=== PATIENT | male | born 1950 | race Caucasian/White ===

== ENCOUNTER 2021-08-28 07:18 | Emergency (ER) | payer OTHER ==
[~2021-08-28] VITALS: Ht 172.7 cm; Wt 68.9 kg
[~2021-08-28 07:18] MED LIST: GUAIFEN-CODEINE10 ML PO; ZITHROMAX250 MG PO
[2021-08-28] MEDS ORDERED: FAMCICLOVIR500 MG PO (07:43)
== END 2021-08-28 08:05 | disposition home or self-care (01) ==
LOC: ED 07:18
DX: B02.9 Zoster without complications (principal); F17.200 Nicotine dependence, unspecified, uncomplicated
CPT/HCPCS: 99282

== ENCOUNTER 2021-10-09 09:02 | Emergency (ER) | payer OTHER ==
[~2021-10-09] VITALS: Ht 172.7 cm; Wt 68.5 kg
[~2021-10-09 09:02] MED LIST changes: +FAMCICLOVIR500 MG PO
--- OUTSIDE RECORDS SUMMARY | 2021-10-09 09:48 | XMS ---
PreManage Notification: BRENDAN JJ Security Nurse Practitioner Home Assessments Events No recent Security Events currently on file CRITERIA MET - [facility] CARE PROVIDERS There are no care providers on record at this time. Jake has no Care Guidelines for this patient. Sarina VISIT COUNT (12 MO.) 2 [facility] TOTAL 2 NOTE: Visits indicate total known visits. ED/UCC VISIT TRACKING (12 MO.) 10/09/2021 09:03 [facility] [place] TYPE: Emergency COMPLAINT: - NEEDING PRESCRIPTION REFILL 08/28/2021 07:20 [facility] TYPE: Emergency COMPLAINT: - RASH ON RT RIB CAGE DIAGNOSES: - Nicotine dependence, unspecified, uncomplicated - Rash and other nonspecific skin eruption - Zoster without complications INPATIENT VISIT TRACKING (12 MO.) No inpatient visits to display in this time frame [id number]
[2021-10-09] MEDS ORDERED: VALTREX1000 MG PO (10:57)
[2021-10-09] MEDS ORDERED: PREDNISONE20 MG PO (10:57)
== END 2021-10-09 11:09 | disposition home or self-care (01) ==
LOC: ED 09:02
DX: B02.9 Zoster without complications (principal); L25.9 Unspecified contact dermatitis, unspecified cause; I10 Essential (primary) hypertension; F17.200 Nicotine dependence, unspecified, uncomplicated; Z79.899 Other long term (current) drug therapy
CPT/HCPCS: 36415; 80053; 85025; 99283

== ENCOUNTER 2021-11-13 22:06 | Emergency (ER) | payer OTHER ==
[~2021-11-13] VITALS: Ht 172.7 cm; Wt 70.0 kg
[~2021-11-13 22:06] MED LIST changes: +PREDNISONE20 MG PO; +VALTREX1000 MG PO
[2021-11-13] MEDS ORDERED: GABAPENTIN100 MG PO (22:23)
[2021-11-13] MEDS ORDERED: CYMBALTA30 MG PO (22:23)
[2021-11-13] MEDS ORDERED: PREDNISONE20 MG PO (23:04)
[2021-11-13] MEDS ORDERED: HYDROCODON-ACE1 EA10 PO (23:04)
== END 2021-11-13 23:16 | disposition home or self-care (01) ==
LOC: ED 22:06
DX: R21 Rash and other nonspecific skin eruption (principal); I10 Essential (primary) hypertension; F17.200 Nicotine dependence, unspecified, uncomplicated; Z79.899 Other long term (current) drug therapy
CPT/HCPCS: 99282; A9270; J7512

== ENCOUNTER 2021-12-06 21:17 | Emergency (ER) | payer OTHER ==
[~2021-12-06] VITALS: Ht 172.7 cm; Wt 69.9 kg
[~2021-12-06 21:17] MED LIST changes: +CYMBALTA30 MG PO; +GABAPENTIN100 MG PO; +HYDROCODON-ACE1 EA10 PO
--- OUTSIDE RECORDS SUMMARY | 2021-12-06 21:18 | XMS ---
PreManage Notification: BRENDAN JJ Security Subject Scientific Research Events No recent Security Events currently on file CRITERIA MET - [facility] - 2 Visits in 30 Days - [facility] CARE PROVIDERS There are no care providers on record at this time. Jake has no Care Guidelines for this patient. [facility] NOTE: Visits indicate total known visits. ED/C VISIT TRACKING (12 MO.) [facility] COMPLAINT: - SKIN PROBLEM 11/13/2021 22:07 [facility] [place] TYPE: Emergency COMPLAINT: - RASH DIAGNOSES: - Rash and other nonspecific skin eruption - Other senior living (current) drug therapy - Essential (primary) hypertension - Nicotine dependence, unspecified, uncomplicated 10/09/2021 09:03 [facility] [place] TYPE: Emergency COMPLAINT: - NEEDING PRESCRIPTION REFILL DIAGNOSES: - Unspecified contact dermatitis, unspecified cause - Other senior living (current) drug therapy - Nicotine dependence, unspecified, uncomplicated - Essential (primary) hypertension - Zoster without complications 08/28/2021 07:20 [facility] [place] TYPE: Emergency COMPLAINT: - RASH ON RT RIB CAGE DIAGNOSES: - Nicotine dependence, unspecified, uncomplicated - Rash and other nonspecific skin eruption - Zoster without complications INPATIENT VISIT TRACKING (12 MO.) No inpatient visits to display in this time frame [id number]
[2021-12-06] MEDS ORDERED: LASIX40 MG PO (21:38)
[2021-12-06] MEDS ORDERED: TRIAMCINOLONE A15 G3 TOP (23:23)
== END 2021-12-06 23:32 | disposition home or self-care (01) ==
LOC: ED 21:17
DX: L30.9 Dermatitis, unspecified (principal); I10 Essential (primary) hypertension; J44.9 Chronic obstructive pulmonary disease, unspecified; F17.200 Nicotine dependence, unspecified, uncomplicated; Z79.899 Other long term (current) drug therapy
CPT/HCPCS: 96372; 99282; J1100; J1170